=== PATIENT | male | born 2000 | race Caucasian/White ===

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

== ENCOUNTER 2024-10-15 19:43 | Emergency (ER) | payer OTHER ==
[~2024-10-15] VITALS: Ht 172.7 cm; Wt 108.0 kg
[~2024-10-15 19:43] MED LIST changes: +CEPHALEXIN500 M1 PO; +HYDROCODON-ACE1 EA10 PO
[2024-10-15 20:11] LABS: BASOPHILS 0.4 % (0.2-1.2); EOSINOPHILS 0.6 % (0.8-7.0); LYMPHOCYTES 17.9 % (21.8-53.1); MCH 29.3 PG (25.7-32.2); MCHC 35.4 g/dL (32.3-36.5); MCV 82.7 fL (79.0-92.2); MONOCYTES 7.3 % (5.3-12.2); NEUTROPHILS 73.4 % (34.0-67.9); RBC 6.25 M/uL (4.63-6.08)
[2024-10-15 20:33] LABS: ALCOHOL, MEDICAL <3 ng/dL (<3); ALT (SGPT) 102 U/L (14-59); AST (SGOT) 30 U/L (15-37); GLOMERULAR FILTRATION RATE,EST 124 mL/min (>60); PROTEIN, TOTAL 7.9 g/dL (6.4-8.2); TSH, 3RD GENERATION 2.355 uIU/mL (0.358-3.740); UREA NITROGEN 12 mg/dL (7-18)
[2024-10-16 04:20] LABS: BLOOD/HGB, URINE NEGATIVE (Negative); KETONE, URINE >=80 (Negative); LEUK ESTERASE, URINE NEGATIVE (negative); NITRITE, URINE POSITIVE (negative)
[2024-10-16 04:25] LABS: EPITHELIAL CELLS, URINE SQUAMOUS 1+ /lpf (0-1+)
[2024-10-16 04:26] LABS: BACTERIA, URINE 1+ /hpf (negative); CASTS, URINE NONE SEEN \\lpf; CRYSTALS, URINE NONE SEEN (0-1+); REFLEX CULTURE, URINE No (No)
[2024-10-16 04:34] LABS: AMPHETAMINES, URINE NEGATIVE (NEGATIVE); BARBITURATES, URINE NEGATIVE (NEGATIVE); BENZODIAZEPINE, URINE NEGATIVE (NEGATIVE); CANNABINOID, URINE POSITIVE (NEGATIVE); COCAINE, URINE NEGATIVE (NEGATIVE); ECSTASY, URINE NEGATIVE (NEGATIVE); FENTANYL, URINE NEGATIVE (NEGATIVE); METHADONE, URINE NEGATIVE (NEGATIVE); OPIATES, URINE NEGATIVE (NEGATIVE); OXYCODONE, URINE NEGATIVE (NEGATIVE); PHENCYCLIDINE, URINE NEGATIVE (NEGATIVE)
[2024-10-16 08:00] VITALS: BP 130/92
== END 2024-10-16 08:00 ==
LOC: ED 19:43
PROVIDERS: Family Medicine
DX: F25.9 Schizoaffective disorder, unspecified (principal); R45.850 Homicidal ideations; R45.851 Suicidal ideations; Z79.899 Other long term (current) drug therapy
CPT/HCPCS: 36415; 80053; 80307; 81001; 84443; 85025; 99285; G0480